=== PATIENT | female | born 1985 | race Caucasian/White ===

== ENCOUNTER → 2016-08-05 | Outpatient (CLI) | payer OTHER ==
[~2016-08-05] MED LIST: ACIPHEX20 MG PO; BACTRIM DS TABL1 TA1 DOB; BIRTH CONTROL PILL; DEXILANT60 MG; MEDROL DOSEPAK4 MG DOB; NO MEDICATIONS; PREVACID PO; REGLAN PO
--- NOTE | ~2016-08-05 | CT57 ---
[facility] A Service of [facility] & [facility] RADIOLOGY TEXT RESULTS PATIENT: REBECCA FERNANDES LOCATION: [facility] : [birth year] UNIT #: [id number] AGE: [address]: Selena Doran MD SEX: F ORDER DR: [id number] [facility]. [place], [place] [address] [id number] O MR#: [id number] Acc #: [id number] NAME: REBECCA FERNANDES : 1985 SEX: F STUDY DATE/TIME: 08/05/2016 8:21 UNIT: [facility] ROOM: STUDY DESCRIPTION: CT Chest Wo Cont Attending Physician: Selena Doran M.D. Referring Physician: Selena Doran M.D. Ordering Physician: Selena Doran M.D. Primary Care Physician: Selena Doran M.D. MEDICAL IMAGING REPORT This report is preliminary unless electronic signature is present EXAM CT chest without contrast. INDICATION Abnormal chest radiograph performed July 24, 2016. This demonstrated some infiltrates within the left lung. This is requested for additional evaluation. TECHNIQUE Axial CT images were obtained from the thoracic inlet through the dome of the diaphragm. No intravenous contrast material administered. This CT exam was performed with one or more of the following radiation dose reduction techniques: automatic exposure control, adjustment of mA and/or kV according to patient size, and iterative reconstruction. Findings. Tree-in-bud infiltrates are identified within the left upper lobe. One area of nodularity measures up to 1.1 x 1.0 cm. Given the presence of adjacent tree-in-bud infiltrates, I suspect this is probably infectious or inflammatory process. Certainly short-term followup exam is recommended. No infiltrates are seen on the right. There is no pleural or pericardial effusion. The thyroid gland trachea esophagus appear unremarkable. There is some enlarged mediastinal lymph nodes. For example, an AP window node measures up to 1.4 x 1 cm. Some soft tissue seen within the anterior mediastinum is probably some residual thymic tissue. No acute abnormalities are seen within the upper abdomen. Review of bony windows does not demonstrate any aggressive osseous abnormalities. IMPRESSION STS. [facility] A Service of [facility] & [facility] RADIOLOGY TEXT RESULTS PATIENT: REBECCA FERNANDES LOCATION: [facility] : [birth year] UNIT #: [id number] AGE: [address]: Selena Doran MD SEX: F ORDER DR: Within the left upper lobe, the patient has extensive tree-in-bud infiltrates, with more focal larger nodule measuring up to 1.1 x 1 cm. This is favored to be infectious or inflammatory process, given morphology as well as the patient's age of 30. However I would suggest a short-term CT followup in 3 months to document resolution. There is also a prominent AP window node likely reactive given the findings on the left upper lobe. Dictated by... Corina Melchor M.D. THIS IS AN ELECTRONICALLY VERIFIED REPORT Corina Melchor M.D. at 08/07/2016 7:59 AM AFF/ayanna TD: 08/05/2016 21:43 JOB #: [id number] MEDICAL IMAGING REPORT Page 1 of 1 COPY
== END | disposition home or self-care (01) ==
LOC: CCAT 08:02
DX: R93.8 Abnormal findings on diagnostic imaging of other specified body structures (principal); R91.1 Solitary pulmonary nodule; R91.8 Other nonspecific abnormal finding of lung field
CPT/HCPCS: 71250

== ENCOUNTER → 2016-11-11 | Outpatient (CLI) | payer OTHER ==
--- NOTE | ~2016-11-11 | CT57 ---
[facility] A Service of [facility] & [facility] RADIOLOGY TEXT RESULTS PATIENT: REBECCA FERNANDES [facility] : 89 UNIT #: [id number] AGE: [address]: Selena Doran MD SEX: F ORDER DR: [id number] [facility] [address] [facility]. [place], [place] [address] [id number] O MR#: [id number] Acc #: [id number] NAME: REBECCA FERNANDES : 1985 SEX: F STUDY DATE/TIME: 11/11/2016 10:13 UNIT: [facility] ROOM: STUDY DESCRIPTION: CT Chest Wo Cont Attending Physician: Selena Doran M.D. Referring Physician: Selena Doran M.D. Ordering Physician: Selena Doran M.D. Primary Care Physician: Selena Doran M.D. MEDICAL IMAGING REPORT This report is preliminary unless electronic signature is present EXAM Chest CT without contrast. HISTORY Indeterminate lung nodule with infiltrates seen on previous chest x-ray with an abnormal chest CT on 08/05/2016. The patient is currently asymptomatic. Evaluate for progression of lung disease or any new lesions. TECHNIQUE Axial images were obtained through the chest without contrast and evaluated at lung and mediastinal windows. This CT exam was performed with one or more of the following radiation dose reduction techniques: automatic exposure control, adjustment of mA and/or kV according to patient size, and iterative reconstruction. FINDINGS Chest images at mediastinal window show minimal residual thymic tissue. There is an 11 mm lymph node adjacent to the aortic arch on the left side of the mediastinum that is unchanged. No new or enlarging nodes are seen. There is no evidence of pleural or pericardial fluid. On the lowermost images, two small nonobstructing kidney stones are seen on the right, each measuring about 2 mm in diameter. Images at lung window show a mixed reticulonodular infiltrate in the left upper lobe. This infiltrate is unchanged from the previous scan. No new infiltrates or enlarging masses are noted. The remaining lung rodriguez are clear. IMPRESSION 1. Stable reticulonodular infiltrate left upper lobe, likely the sequelae of previous inflammatory disease. 2. Stable small lymph node adjacent to the aortic arch on the left. [facility]. [facility] A Service of [facility] & [facility] RADIOLOGY TEXT RESULTS PATIENT: REBECCA FERNANDES LOCATION: [facility] : [birth year] UNIT #: [id number] AGE: [address]: Selena Doran MD SEX: F ORDER DR: 3. No new infiltrates or nodes are seen. No acute findings. 4. There are 2 tiny nonobstructing right kidney stones noted. Dictated by... Hoang Taylor M.D. THIS IS AN ELECTRONICALLY VERIFIED REPORT Hoang Taylor M.D. at 11/12/2016 5:00 PM GARRY/alexus TD: 11/12/2016 13:58 JOB #: [id number] MEDICAL IMAGING REPORT Page 1 of 1 COPY
== END | disposition home or self-care (01) ==
LOC: CCAT 09:47
DX: R93.8 Abnormal findings on diagnostic imaging of other specified body structures (principal); R91.8 Other nonspecific abnormal finding of lung field
CPT/HCPCS: 71250